=== PATIENT | female | born 1930 | race Caucasian/White ===

== ENCOUNTER 2016-08-09 20:31 | Emergency (ER) | payer OTHER ==
[~2016-08-09] VITALS: Ht 147.3 cm; Wt 63.4 kg
[2016-08-09 21:37] LABS: EOSINOPHIL (%) 1.2 % (0-5); EOSINOPHIL COUNT 0.1 K/uL (0-0.3); HEMATOCRIT 42.6 % (36.0-46.0); IMMATURE GRANULOCYTE (%) 0.6 % (0.0-0.7); INSTRUMENT ABS NEUTROPHIL CT 5.2 K/uL; LYMPHOCYTE COUNT 1.2 K/uL (1.0-2.8); MCH 27.2 PG (29.0-34.0); MCHC 32.4 G/DL (30.0-36.0); MEAN PLAT.VOLUME 10.4 uM^3 (9.5-12.4); MONOCYTE (%) 9.8 % (3-12); MONOCYTE COUNT 0.7 K/uL (0-0.8); NEUTROPHIL (%) 71.8 % (45-76); NEUTROPHIL COUNT 5.2 K/uL (1.8-6.4); PLATELET COUNT 303 K/uL (156-360); RBC DIS.WIDTH-CV 13.3 % (11.8-14.6); RBC DIS.WIDTH-SD 40.9 % (39-53); RED BLOOD COUNT 5.07 M/uL (3.80-5.20); WHITE BLOOD COUNT 7.2 K/uL (4.1-10.2)
[2016-08-09 21:50] LABS: CHLORIDE 103 mEq/L (99-109); POTASSIUM 3.5 mEq/L (3.7-5.4); SODIUM 141 mEq/L (136-147)
[2016-08-09 21:52] LABS: GLUCOSE 194 mg/dL (70-99)
[2016-08-09 21:53] LABS: ANION GAP 13 MEQ/L (2-14)
[2016-08-09 21:54] LABS: TOTAL BILIRUBIN 0.5 mg/dL (0.0-1.0)
[2016-08-09 21:56] LABS: ALKALINE PHOSPHATASE 83 IU/L (3-129); GFR ESTIMATE (CALCULATED) 35 mL/min/
[2016-08-09 21:57] LABS: UREA NITROGEN (BUN) 18 mg/dL (9-23)
[2016-08-09 22:02] LABS: TROP-I INTERPRETATION NEGATIVE; TROPONIN-I 0.02 ng/mL (0.0-0.30)
[2016-08-09 23:35] VITALS: BP 199/69
== END 2016-08-09 23:37 | disposition home or self-care (01) ==
LOC: EME 20:31
PROVIDERS: Emergency Medicine
DX: S00.03XA Contusion of scalp, initial encounter (principal); W18.30XA Fall on same level, unspecified, initial encounter; Y92.512 Supermarket, store or market as the place of occurrence of the external cause; I10 Essential (primary) hypertension; T46.5X6A Underdosing of other antihypertensive drugs, initial encounter; Z91.130 Patient's unintentional underdosing of medication regimen due to age-related debility; M53.3 Sacrococcygeal disorders, not elsewhere classified; M25.551 Pain in right hip; E11.9 Type 2 diabetes mellitus without complications; E78.5 Hyperlipidemia, unspecified
CPT/HCPCS: 70450; 71010; 72220; 73502; 80053; 84484; 85025; 93005; 99281; 99285

== ENCOUNTER 2017-02-04 12:25 | Inpatient (IN) | payer OTHER ==
[~2017-02-04] VITALS: Ht 154.9 cm; Wt 68.6 kg
[2017-02-04 13:18] LABS: ADD MIUA? YES; BILIRUBIN NEGATIVE; BLOOD MODERATE; COLOR YELLOW ((YELLOW)); GLUCOSE (STRIP) >=500; KETONES 20; LEUKOCYTES LARGE; NITRITE NEGATIVE; PROTEIN (STRIP) >=500; SPECIFIC GRAVITY 1.016 (1.000-1.030); UROBILINOGEN 0.2 MG/DL (0.2-1.0)
[2017-02-04 13:21] LABS: EOSINOPHIL (%) 0 % (0-5); HEMATOCRIT 44.5 % (36.0-46.0); IMMATURE GRANULOCYTE (%) 0.5 % (0.0-0.7); IMMATURE GRANULOCYTE COUNT 0.1 K/uL; INSTRUMENT ABS NEUTROPHIL CT 11.8 K/uL; LYMPHOCYTE COUNT 0.7 K/uL (1.0-2.8); MCH 27.5 PG (29.0-34.0); MCHC 31.7 G/DL (30.0-36.0); MCV 86.9 FL (83-99); MEAN PLAT.VOLUME 11.1 uM^3 (9.5-12.4); MONOCYTE (%) 8.4 % (3-12); MONOCYTE COUNT 1.2 K/uL (0-0.8); NEUTROPHIL COUNT 11.8 K/uL (1.8-6.4); PLATELET COUNT 318 K/uL (156-360); RBC DIS.WIDTH-CV 14.2 % (11.8-14.6); RBC DIS.WIDTH-SD 45.1 % (39-53); RED BLOOD COUNT 5.12 M/uL (3.80-5.20); WHITE BLOOD COUNT 13.7 K/uL (4.1-10.2)
[2017-02-04 13:22] LABS: CARBON DIOXIDE (BICARBONATE) 19.7 MEQ/L (20-31)
[2017-02-04 13:29] LABS: PROTHROMBIN TIME 11.5 SEC (10.2-12.9)
[2017-02-04 13:31] LABS: CHLORIDE 111 mEq/L (99-109); POTASSIUM 4.2 mEq/L (3.7-5.4); PTT 30.5 SEC (25-37); SODIUM 153 mEq/L (136-147)
[2017-02-04 13:32] LABS: MAGNESIUM 1.9 mg/dL (1.3-2.7)
[2017-02-04 13:35] LABS: ANION GAP 23 MEQ/L (2-14)
[2017-02-04 13:36] LABS: GLUCOSE 693 mg/dL (70-99); TOTAL BILIRUBIN 0.5 mg/dL (0.0-1.0)
[2017-02-04 13:36] LABS: BACTERIA RARE /HPF; EPITHELIAL CELLS NONE SEEN /HPF; MUCUS NONE SEEN /LPF; RED BLOOD CELLS 15-20 /HPF (0-5); UCUL ADDED? YES; WHITE BLOOD CELLS TNTC /HPF (0-5)
[2017-02-04 13:37] LABS: ALKALINE PHOSPHATASE 96 IU/L (3-129); GFR ESTIMATE (CALCULATED) 16 mL/min/
[2017-02-04 13:39] LABS: UREA NITROGEN (BUN) 79 mg/dL (9-23)
[2017-02-04 13:40] LABS: TOTAL CK 1599 IU/L (1-294)
[2017-02-04 13:42] LABS: CREATINE KINASE 1599 IU/L (1-294)
[2017-02-04 13:43] LABS: TROP-I INTERPRETATION POSITIVE
[2017-02-04 13:44] LABS: TROPONIN-I 3.65 ng/mL (0.0-0.30)
[2017-02-04 13:46] LABS: CK-MB 41.1 ng/mL (0.0-4.9)
[2017-02-04 14:34] LABS: BICARBONATE 16.9 mEq/L (22-26); CARBOXY HGB 2.1 % (0-5); COMMENTS - BLOOD GASES C+A+; FI02 21 %; METHEMOGLOBIN 1.5 % (0-1.5); PCO2 32 mm Hg (35-45); PO2 88 mm Hg (80-100); SITE LB; TOTAL RESP RATE 20 resp/min; pH 7.33 (7.35-7.45)
[2017-02-04 17:23] LABS: EOSINOPHIL (%) 0 % (0-5); HEMATOCRIT 46.3 % (36.0-46.0); IMMATURE GRANULOCYTE (%) 0.4 % (0.0-0.7); IMMATURE GRANULOCYTE COUNT 0.1 K/uL; INSTRUMENT ABS NEUTROPHIL CT 11.7 K/uL; LYMPHOCYTE COUNT 0.9 K/uL (1.0-2.8); MCH 27.8 PG (29.0-34.0); MCHC 31.5 G/DL (30.0-36.0); MCV 88.2 FL (83-99); MEAN PLAT.VOLUME 11.5 uM^3 (9.5-12.4); MONOCYTE (%) 10.9 % (3-12); MONOCYTE COUNT 1.5 K/uL (0-0.8); NEUTROPHIL (%) 82.3 % (45-76); NEUTROPHIL COUNT 11.7 K/uL (1.8-6.4); PLATELET COUNT 281 K/uL (156-360); RBC DIS.WIDTH-CV 14.4 % (11.8-14.6); RBC DIS.WIDTH-SD 45.7 % (39-53); RED BLOOD COUNT 5.25 M/uL (3.80-5.20); WHITE BLOOD COUNT 14.2 K/uL (4.1-10.2)
[2017-02-04 17:50] LABS: METH RESISTANT S AUREUS PCR NEGATIVE (NEGATIVE)
[2017-02-04 17:51] LABS: GLUCOSE 519 mg/dL (70-99)
[2017-02-04 17:56] LABS: PROBE CHECK PASS; SPECIMEN PROCESSING CONTROL PASS
[2017-02-04 18:00] VITALS: BP 111/81
[2017-02-04 18:38] LABS: GLUCOSE 499 mg/dL (70-99)
[2017-02-04 18:51] LABS: Estimated Average Glucose 269 mg/dL (70-123)
[2017-02-04 19:00] VITALS: BP 105/57
[2017-02-04 20:00] VITALS: BP 128/65
[2017-02-04 20:15] LABS: GLUCOSE 487 mg/dL (70-99)
[2017-02-04 20:25] LABS: ANION GAP 18 MEQ/L (2-14); CHLORIDE 115 MEQ/L (99-109); POTASSIUM 4.2 MEQ/L (3.7-5.4); SAMPLE HEMOLYSIS CHECK 0; SAMPLE ICTERIC CHECK 0; SAMPLE LIPEMIA CHECK 0; SODIUM 150 MEQ/L (136-147)
[2017-02-04 20:36] LABS: GFR ESTIMATE (CALCULATED) 28 mL/min/; UREA NITROGEN (BUN) 65 mg/dL (9-23)
[2017-02-04 20:41] LABS: GLUCOSE 476 mg/dL (70-99)
[2017-02-04 21:00] VITALS: BP 110/63
[2017-02-04 21:33] LABS: ANION GAP 31 MEQ/L (2-14); CHLORIDE 113 MEQ/L (99-109); GFR ESTIMATE (CALCULATED) 25 mL/min/; GLUCOSE 519 mg/dL (70-99); MAGNESIUM 1.8 mg/dl (1.3-2.7); POTASSIUM 4.3 MEQ/L (3.7-5.4); SAMPLE HEMOLYSIS CHECK 1; SAMPLE ICTERIC CHECK 0; SAMPLE LIPEMIA CHECK 0; SODIUM 154 MEQ/L (136-147); UREA NITROGEN (BUN) 69 mg/dL (9-23)
[2017-02-04 21:38] LABS: GLUCOSE 455 mg/dL (70-99)
[2017-02-04 22:00] VITALS: BP 109/57
[2017-02-04 22:11] LABS: POINT-OF-CARE METER ID UU13113731; POINT-OF-CARE USER ID PHATLC
[2017-02-04 23:00] VITALS: BP 117/68
[2017-02-04 23:11] LABS: POINT-OF-CARE METER ID UU13113731; POINT-OF-CARE USER ID PHATLC
[2017-02-04 23:15] LABS: GLUCOSE 290 mg/dL (70-99)
[2017-02-05] VITALS (24 sets, daily range): BP systolic 83–143; BP diastolic 46–93
[2017-02-05 00:21] LABS: POINT-OF-CARE METER ID UU13113748; POINT-OF-CARE USER ID 606021424
[2017-02-05 00:33] LABS: SODIUM 154 mEq/L (136-147)
[2017-02-05 00:34] LABS: CHLORIDE 124 mEq/L (99-109); POTASSIUM 2.9 mEq/L (3.7-5.4)
[2017-02-05 00:36] LABS: ANION GAP 11 MEQ/L (2-14)
[2017-02-05 00:39] LABS: GFR ESTIMATE (CALCULATED) 25 mL/min/; UREA NITROGEN (BUN) 65 mg/dL (9-23)
[2017-02-05 00:47] LABS: TROP-I INTERPRETATION POSITIVE
[2017-02-05 00:53] LABS: TROPONIN-I 3.21 ng/mL (0.0-0.30)
[2017-02-05 01:04] LABS: POINT-OF-CARE METER ID UU13113731; POINT-OF-CARE USER ID PHATLC
[2017-02-05 01:59] LABS: POINT-OF-CARE METER ID UU14314082; POINT-OF-CARE USER ID PHATLC
[2017-02-05 02:43] LABS: POINT-OF-CARE METER ID UU14314082; POINT-OF-CARE USER ID 606021424
[2017-02-05 03:35] LABS: POINT-OF-CARE METER ID UU14314082; POINT-OF-CARE USER ID PHATLC
[2017-02-05 04:02] LABS: CHLORIDE 123 mEq/L (99-109); POTASSIUM 3.1 mEq/L (3.7-5.4); SODIUM 157 mEq/L (136-147)
[2017-02-05 04:05] LABS: ANION GAP 14 MEQ/L (2-14)
[2017-02-05 04:06] LABS: GLUCOSE 105 mg/dL (70-99)
[2017-02-05 04:07] LABS: GFR ESTIMATE (CALCULATED) 27 mL/min/
[2017-02-05 04:08] LABS: UREA NITROGEN (BUN) 60 mg/dL (9-23)
[2017-02-05 04:39] LABS: POINT-OF-CARE METER ID UU14314082; POINT-OF-CARE USER ID PHATLC
[2017-02-05 04:55] LABS: TROP-I INTERPRETATION POSITIVE
[2017-02-05 04:57] LABS: TROPONIN-I 4.46 ng/mL (0.0-0.30)
[2017-02-05 05:54] LABS: POINT-OF-CARE METER ID UU14314082; POINT-OF-CARE USER ID PHATLC
[2017-02-05 06:43] LABS: POINT-OF-CARE METER ID UU14174217
[2017-02-05 07:48] LABS: POINT-OF-CARE METER ID UU14314082
[2017-02-05 08:52] LABS: POINT-OF-CARE METER ID UU14314082
[2017-02-05 09:24] LABS: ANION GAP 16 MEQ/L (2-14); CHLORIDE 122 MEQ/L (99-109); CREATINE KINASE 870 IU/L (1-294); GFR ESTIMATE (CALCULATED) 27 mL/min/; POTASSIUM 3.5 MEQ/L (3.7-5.4); SAMPLE HEMOLYSIS CHECK 0; SAMPLE ICTERIC CHECK 0; SAMPLE LIPEMIA CHECK 0; SODIUM 156 MEQ/L (136-147); UREA NITROGEN (BUN) 56 mg/dL (9-23)
[2017-02-05 09:26] LABS: GLUCOSE 202 mg/dL (70-99)
[2017-02-05 10:00] LABS: POINT-OF-CARE METER ID UU14174217
[2017-02-05 11:02] LABS: POINT-OF-CARE METER ID UU14174217
[2017-02-05 12:10] LABS: POINT-OF-CARE METER ID UU14208751
[2017-02-05 13:13] LABS: POINT-OF-CARE METER ID UU14208751
[2017-02-05 13:19] LABS: TROP-I INTERPRETATION POSITIVE; TROPONIN-I 2.85 ng/mL (0.0-0.30)
[2017-02-05 13:29] LABS: PTT 93.4 SEC (25-37)
[2017-02-05 13:30] LABS: ANION GAP 12 MEQ/L (2-14); CHLORIDE 122 MEQ/L (99-109); GFR ESTIMATE (CALCULATED) 32 mL/min/; GLUCOSE 138 mg/dL (70-99); POTASSIUM 3.4 MEQ/L (3.7-5.4); SAMPLE HEMOLYSIS CHECK 0; SAMPLE ICTERIC CHECK 0; SAMPLE LIPEMIA CHECK 0; SODIUM 154 MEQ/L (136-147); UREA NITROGEN (BUN) 51 mg/dL (9-23); VANCOMYCIN, TROUGH 11.9 MCG/ML (10-20)
[2017-02-05 13:40] LABS: POINT-OF-CARE METER ID UU14208751
[2017-02-05 15:04] LABS: POINT-OF-CARE METER ID UU14208751
[2017-02-05 16:50] LABS: POINT-OF-CARE METER ID UU14208751
[2017-02-05 21:01] LABS: TROP-I INTERPRETATION POSITIVE; TROPONIN-I 2.96 ng/mL (0.0-0.30)
[2017-02-05 23:34] LABS: POINT-OF-CARE METER ID UU14208751
[2017-02-06] VITALS (12 sets, daily range): BP systolic 119–154; BP diastolic 52–104
[2017-02-06 03:45] LABS: CHLORIDE 122 mEq/L (99-109); POTASSIUM 3.1 mEq/L (3.7-5.4); SODIUM 153 mEq/L (136-147)
[2017-02-06 03:47] LABS: MAGNESIUM 1.1 mg/dL (1.3-2.7)
[2017-02-06 03:48] LABS: GLUCOSE 99 mg/dL (70-99)
[2017-02-06 03:49] LABS: ANION GAP 11 MEQ/L (2-14)
[2017-02-06 03:51] LABS: GFR ESTIMATE (CALCULATED) 32 mL/min/
[2017-02-06 03:52] LABS: UREA NITROGEN (BUN) 45 mg/dL (9-23)
[2017-02-06 04:37] LABS: EOSINOPHIL (%) 1.9 % (0-5); EOSINOPHIL COUNT 0.1 K/uL (0-0.3); HEMATOCRIT 31.8 % (36.0-46.0); IMMATURE GRANULOCYTE (%) 0.6 % (0.0-0.7); INSTRUMENT ABS NEUTROPHIL CT 5.3 K/uL; LYMPHOCYTE COUNT 1.2 K/uL (1.0-2.8); MCH 27.5 PG (29.0-34.0); MCHC 31.4 G/DL (30.0-36.0); MCV 87.4 FL (83-99); MONOCYTE (%) 7.3 % (3-12); MONOCYTE COUNT 0.5 K/uL (0-0.8); NEUTROPHIL (%) 72.9 % (45-76); NEUTROPHIL COUNT 5.3 K/uL (1.8-6.4); RBC DIS.WIDTH-CV 14.4 % (11.8-14.6); RBC DIS.WIDTH-SD 46.3 % (39-53); WHITE BLOOD COUNT 7.2 K/uL (4.1-10.2)
[2017-02-06 04:38] LABS: RED BLOOD COUNT 3.64 M/uL (3.80-5.20)
[2017-02-06 07:24] LABS: MEAN PLAT.VOLUME 11.5 uM^3 (9.5-12.4); PLAT.SUFFICIENCY ADEQUATE
[2017-02-06 07:25] LABS: PLATELET COUNT 194 K/uL (156-360)
[2017-02-06 12:13] LABS: POINT-OF-CARE METER ID UU13113748
[2017-02-06 17:21] LABS: POINT-OF-CARE METER ID UU14162508
[2017-02-06 20:16] LABS: ANION GAP 15 MEQ/L (2-14); CHLORIDE 118 MEQ/L (99-109); GFR ESTIMATE (CALCULATED) 30 mL/min/; SAMPLE HEMOLYSIS CHECK 0; SAMPLE ICTERIC CHECK 0; SAMPLE LIPEMIA CHECK 0; SODIUM 149 MEQ/L (136-147); UREA NITROGEN (BUN) 40 mg/dL (9-23)
[2017-02-06 20:19] LABS: POINT-OF-CARE METER ID UU14100415
[2017-02-06 20:19] LABS: POINT-OF-CARE METER ID UU13113748
[2017-02-06 20:20] LABS: GLUCOSE 153 mg/dL (70-99); POTASSIUM 4.2 MEQ/L (3.7-5.4)
[2017-02-06 20:32] LABS: POINT-OF-CARE METER ID UU13113731; POINT-OF-CARE USER ID PHATLC
[2017-02-06 20:32] LABS: POINT-OF-CARE METER ID UU13113731; POINT-OF-CARE USER ID PHATLC
[2017-02-07] VITALS: BP 138/62
[2017-02-07 00:01] LABS: POINT-OF-CARE METER ID UU14208750
[2017-02-07 04:02] VITALS: BP 134/61
[2017-02-07 05:37] LABS: POINT-OF-CARE METER ID UU14208750
[2017-02-07 07:10] LABS: EOSINOPHIL COUNT 0.1 K/uL (0-0.3); HEMATOCRIT 32.4 % (36.0-46.0); IMMATURE GRANULOCYTE (%) 0.9 % (0.0-0.7); IMMATURE GRANULOCYTE COUNT 0.1 K/uL; INSTRUMENT ABS NEUTROPHIL CT 4.8 K/uL; MCH 28.5 PG (29.0-34.0); MCHC 32.1 G/DL (30.0-36.0); MCV 88.8 FL (83-99); MEAN PLAT.VOLUME 11.2 uM^3 (9.5-12.4); MONOCYTE (%) 8.1 % (3-12); MONOCYTE COUNT 0.5 K/uL (0-0.8); NEUTROPHIL (%) 73.8 % (45-76); NEUTROPHIL COUNT 4.8 K/uL (1.8-6.4); PLATELET COUNT 169 K/uL (156-360); RBC DIS.WIDTH-CV 14.6 % (11.8-14.6); RBC DIS.WIDTH-SD 47.2 % (39-53); RED BLOOD COUNT 3.65 M/uL (3.80-5.20); WHITE BLOOD COUNT 6.5 K/uL (4.1-10.2)
[2017-02-07 07:20] VITALS: BP 120/57
[2017-02-07 07:38] LABS: ANION GAP 15 MEQ/L (2-14); CHLORIDE 118 MEQ/L (99-109); GFR ESTIMATE (CALCULATED) 30 mL/min/; GLUCOSE 173 mg/dL (70-99); POTASSIUM 4.2 MEQ/L (3.7-5.4); SAMPLE HEMOLYSIS CHECK 0; SAMPLE ICTERIC CHECK 0; SAMPLE LIPEMIA CHECK 0; SODIUM 151 MEQ/L (136-147); UREA NITROGEN (BUN) 40 mg/dL (9-23)
[2017-02-07 11:35] LABS: POINT-OF-CARE METER ID UU14314084
[2017-02-07] MEDS ORDERED: LISINOPRIL40 MG PO (12:28)
[2017-02-07] MEDS ORDERED: NORVASC5 MG PO (12:28)
[2017-02-07] MEDS ORDERED: PRAVACHOL40 MG PO (12:28)
[2017-02-07] MEDS ORDERED: MELOXICAM7.5 MG PO (12:29)
[2017-02-07] MEDS ORDERED: MUPIROCIN15 GM TP (12:29)
[2017-02-07] MEDS ORDERED: TRADJENTA5 MG PO (12:30)
[2017-02-07 13:06] VITALS: BP 190/70
[2017-02-07 15:47] VITALS: BP 110/58
[2017-02-07 16:32] LABS: POINT-OF-CARE METER ID UU14314084
[2017-02-07 20:15] VITALS: BP 183/78
[2017-02-07 20:50] LABS: ANION GAP 12 MEQ/L (2-14); CHLORIDE 113 MEQ/L (99-109); GFR ESTIMATE (CALCULATED) 35 mL/min/; SAMPLE HEMOLYSIS CHECK 0; SAMPLE ICTERIC CHECK 0; SAMPLE LIPEMIA CHECK 0; SODIUM 145 MEQ/L (136-147); UREA NITROGEN (BUN) 35 mg/dL (9-23)
[2017-02-07 21:47] LABS: GLUCOSE 260 mg/dL (70-99)
[2017-02-07 22:05] LABS: POINT-OF-CARE METER ID UU14208750
[2017-02-08] VITALS (7 sets, daily range): BP systolic 145–188; BP diastolic 68–89
[2017-02-08 06:20] LABS: POINT-OF-CARE METER ID UU14314084
[2017-02-08 08:41] LABS: ANION GAP 9 MEQ/L (2-14); CHLORIDE 112 MEQ/L (99-109); GFR ESTIMATE (CALCULATED) 41 mL/min/; GLUCOSE 139 mg/dL (70-99); POTASSIUM 3.3 MEQ/L (3.7-5.4); SAMPLE HEMOLYSIS CHECK 0; SAMPLE ICTERIC CHECK 0; SAMPLE LIPEMIA CHECK 0; SODIUM 144 MEQ/L (136-147); UREA NITROGEN (BUN) 28 mg/dL (9-23)
[2017-02-08 12:30] LABS: POINT-OF-CARE METER ID UU14314084
[2017-02-08 16:58] LABS: POINT-OF-CARE METER ID UU14314084
[2017-02-08 20:48] LABS: ANION GAP 11 MEQ/L (2-14); CHLORIDE 107 MEQ/L (99-109); GFR ESTIMATE (CALCULATED) 45 mL/min/; GLUCOSE 235 mg/dL (70-99); POTASSIUM 3.4 MEQ/L (3.7-5.4); SAMPLE HEMOLYSIS CHECK 0; SAMPLE ICTERIC CHECK 0; SAMPLE LIPEMIA CHECK 0; SODIUM 141 MEQ/L (136-147); UREA NITROGEN (BUN) 24 mg/dL (9-23)
[2017-02-08 21:46] LABS: POINT-OF-CARE METER ID UU14314084
[2017-02-09 03:44] VITALS: BP 155/82
[2017-02-09 06:43] LABS: HEMATOCRIT 33.2 % (36.0-46.0); MCH 26.9 PG (29.0-34.0); MCHC 31.3 G/DL (30.0-36.0); MCV 85.8 FL (83-99); MEAN PLAT.VOLUME 11.5 uM^3 (9.5-12.4); PLATELET COUNT 181 K/uL (156-360); RBC DIS.WIDTH-CV 13.7 % (11.8-14.6); RBC DIS.WIDTH-SD 42.5 % (39-53); RED BLOOD COUNT 3.87 M/uL (3.80-5.20); WHITE BLOOD COUNT 5.5 K/uL (4.1-10.2)
[2017-02-09 07:07] LABS: ANION GAP 10 MEQ/L (2-14); CHLORIDE 111 MEQ/L (99-109); GFR ESTIMATE (CALCULATED) 45 mL/min/; POTASSIUM 3.4 MEQ/L (3.7-5.4); SAMPLE HEMOLYSIS CHECK 0; SAMPLE ICTERIC CHECK 0; SAMPLE LIPEMIA CHECK 0; SODIUM 143 MEQ/L (136-147); UREA NITROGEN (BUN) 21 mg/dL (9-23)
[2017-02-09 07:09] LABS: GLUCOSE 100 mg/dL (70-99)
[2017-02-09 07:20] VITALS: BP 156/81
[2017-02-09 12:03] LABS: POINT-OF-CARE METER ID UU14208750
[2017-02-09] MEDS ORDERED: CEPHALEXIN250 MG PO (12:23)
[2017-02-09] MEDS ORDERED: LISINOPRIL20 MG PO (12:28)
[2017-02-09] MEDS ORDERED: ASPIRIN EC325 MG PO (12:32)
[2017-02-09] MEDS ORDERED: LEVEMIR100 UNIT/2 SC (12:33)
[2017-02-09 15:50] VITALS: BP 129/56
[2017-02-09 16:12] LABS: POINT-OF-CARE METER ID UU14314084
[2017-02-09 20:21] LABS: SODIUM 138 mEq/L (136-147)
[2017-02-09 20:24] LABS: ANION GAP 9 MEQ/L (2-14)
[2017-02-09 20:27] LABS: GFR ESTIMATE (CALCULATED) 35 mL/min/
[2017-02-09 20:28] LABS: CHLORIDE 109 mEq/L (99-109); GLUCOSE 227 mg/dL (70-99); POTASSIUM 4.2 mEq/L (3.7-5.4); UREA NITROGEN (BUN) 19 mg/dL (9-23)
[2017-02-09 22:19] LABS: POINT-OF-CARE METER ID UU14208750
[2017-02-09 23:00] VITALS: BP 183/84
[2017-02-10 06:46] LABS: POINT-OF-CARE METER ID UU14314084
[2017-02-10 07:52] VITALS: BP 169/70
[2017-02-10 11:53] LABS: POINT-OF-CARE METER ID UU14208750
[2017-02-10 17:02] LABS: POINT-OF-CARE METER ID UU14314084
[2017-02-10 18:20] VITALS: BP 166/74
== END 2017-02-10 18:22 | DRG 871 ==
LOC: EME 12:25 → EDOF 14:41 → 2EAST 14:41 → ENRESERV 14:42 → 4WEST 15:57 → ENRESERV 02-06 11:11 → 2EAST 02-06 16:48
PROVIDERS: Emergency Medicine; Hospitalist; Internal Medicine; Specialist; Surgery
DX: A41.9 Sepsis, unspecified organism (principal); N17.9 Acute kidney failure, unspecified; E11.10 Type 2 diabetes mellitus with ketoacidosis without coma; N39.0 Urinary tract infection, site not specified; E87.0 Hyperosmolality and hypernatremia; M62.82 Rhabdomyolysis; I10 Essential (primary) hypertension; E86.0 Dehydration; R68.0 Hypothermia, not associated with low environmental temperature; B96.4 Proteus (mirabilis) (morganii) as the cause of diseases classified elsewhere; Z66 Do not resuscitate; I24.8 Other forms of acute ischemic heart disease; G93.41 Metabolic encephalopathy; E78.5 Hyperlipidemia, unspecified; E86.1 Hypovolemia; I44.7 Left bundle-branch block, unspecified; Z91.81 History of falling
CPT/HCPCS: 36600; 70450; 71010; 80048; 80048 91; 80053; 80202; 81003; 82010; 82550; 82553; 82803; 82947 91; 82948; 83036; 83605; 83735; 84100; 84484; 85025; 85025 91; 85027; 85610; 85730; 87040; 87077; 87086; 87186; 87641; 93005; 93306; 97530 GP; 99281; 99285; C1751; J0610; J0696; J1644; J1815; J2270; J2543; J3370; J3475; J3480; J7030; J7040; J7050; J7120

== ENCOUNTER 2017-04-20 23:09 | Inpatient (IN) | payer OTHER ==
[~2017-04-20] VITALS: Ht 139.7 cm; Wt 62.0 kg
[~2017-04-20 23:09] MED LIST: ASPIRIN EC325 MG PO; CEPHALEXIN250 MG PO; LEVEMIR100 UNIT/2 SC; LISINOPRIL20 MG PO; LISINOPRIL40 MG PO; MELOXICAM7.5 MG PO; MUPIROCIN15 GM TP; NORVASC5 MG PO; PRAVACHOL40 MG PO; TRADJENTA5 MG PO
[2017-04-21 00:20] LABS: BASOPHIL (%) 0.4 % (0-1); EOSINOPHIL (%) 0.6 % (0-5); HEMATOCRIT 36.3 % (36.0-46.0); IMMATURE GRANULOCYTE (%) 0.6 % (0.0-0.7); LYMPHOCYTE (%) 17.7 % (15-42); MCH 27.3 PG (29.0-34.0); MCHC 33.1 G/DL (30.0-36.0); MCV 82.5 FL (83-99); MONOCYTE (%) 16.8 % (3-12); MONOCYTE COUNT 0.9 K/uL (0-0.8); NEUTROPHIL (%) 63.9 % (45-76); NEUTROPHIL COUNT 3.5 K/uL (1.8-6.4); PLATELET COUNT 393 K/uL (156-360); RBC DIS.WIDTH-CV 15.7 % (11.8-14.6); RBC DIS.WIDTH-SD 47.5 % (39-53); WHITE BLOOD COUNT 5.4 K/uL (4.1-10.2)
[2017-04-21 00:31] LABS: ALBUMIN 3.7 g/dL (3.2-4.8); CHLORIDE 90 mEq/L (99-109); POTASSIUM 3.9 mEq/L (3.7-5.4); SODIUM 132 mEq/L (136-147)
[2017-04-21 00:33] LABS: APPEARANCE CLOUDY ((CLEAR)); BILIRUBIN NEGATIVE; BLOOD NEGATIVE; COLOR AMBER ((YELLOW)); GLUCOSE (STRIP) NEGATIVE; KETONES NEGATIVE; LEUKOCYTES LARGE; NITRITE NEGATIVE; PROTEIN (STRIP) 30; SPECIFIC GRAVITY 1.021 (1.000-1.030); UROBILINOGEN 0.2 MG/DL (0.2-1.0)
[2017-04-21 00:33] LABS: GLUCOSE 198 mg/dL (70-99); TOTAL PROTEIN 6.6 g/dL (6.4-8.3)
[2017-04-21 00:35] LABS: TOTAL BILIRUBIN 0.5 mg/dL (0.0-1.0)
[2017-04-21 00:37] LABS: ALKALINE PHOSPHATASE 89 IU/L (3-129); CREATININE 2.3 mg/dL (0.6-1.3); GFR ESTIMATE (CALCULATED) 21 mL/min/
[2017-04-21 00:38] LABS: UREA NITROGEN (BUN) 42 mg/dL (9-23)
[2017-04-21 00:39] LABS: AST (GOT) 12 IU/L (2-34)
[2017-04-21 00:40] LABS: ALT (GPT) 7 IU/L (3-49); LIPASE 56 U/L (1.0-51.0)
[2017-04-21 00:53] LABS: BACTERIA 1+ /HPF; EPITHELIAL CELLS 3+ /HPF; HYALINE CASTS 15-20 /LPF; MUCUS TRACE /LPF; UCUL ADDED? YES; WHITE BLOOD CELLS 20-30 /HPF (0-5)
[2017-04-21 09:00] VITALS: BP 114/56
[2017-04-21 10:17] LABS: HEMOGLOBIN A1c (GLYCOHEMOGLOB) 7.4 % (Below 5.7)
[2017-04-21] MEDS ORDERED: MIRTAZAPINE15 MG PO (11:25)
[2017-04-21] MEDS ORDERED: ERGOCALCIF50000 UNIT PO (11:28)
[2017-04-21] MEDS ORDERED: CEFTIN250 MG PO (11:30)
[2017-04-21] MEDS ORDERED: METOPROLOL TART25 MG PO (11:33)
[2017-04-21] MEDS ORDERED: OMEGA-3 KRILL1 EAC2 PO (11:37)
[2017-04-21] MEDS ORDERED: GAS RELIEF125 M1 PO (11:43)
[2017-04-21] MEDS ORDERED: TYLENOL REGULA325 MG PO (11:45)
[2017-04-21] MEDS ORDERED: ZOFRAN4 MG PO (11:48)
[2017-04-21 12:00] VITALS: BP 118/65
[2017-04-21 15:39] VITALS: BP 123/57
[2017-04-21 20:00] VITALS: BP 106/59; BP 143/65
[2017-04-22 04:00] VITALS: BP 120/56
[2017-04-22 05:51] LABS: HEMOGLOBIN 10.2 G/DL (11.9-15.5); MCH 27.3 PG (29.0-34.0); MCHC 31.9 G/DL (30.0-36.0); MCV 85.6 FL (83-99); PLATELET COUNT 307 K/uL (156-360); RBC DIS.WIDTH-CV 15.8 % (11.8-14.6); RBC DIS.WIDTH-SD 49.7 % (39-53); RED BLOOD COUNT 3.74 M/uL (3.80-5.20); WHITE BLOOD COUNT 8.7 K/uL (4.1-10.2)
[2017-04-22 06:18] LABS: CHLORIDE 101 MEQ/L (99-109); GFR ESTIMATE (CALCULATED) 30 mL/min/; GLUCOSE 196 mg/dL (70-99); POTASSIUM 3.5 MEQ/L (3.7-5.4); SODIUM 136 MEQ/L (136-147); UREA NITROGEN (BUN) 33 mg/dL (9-23)
[2017-04-22 06:23] LABS: CREATININE 1.7 MG/DL (0.6-1.3)
[2017-04-22 07:25] VITALS: BP 151/62
[2017-04-22 12:09] VITALS: BP 139/63
[2017-04-22 15:39] VITALS: BP 128/60
[2017-04-22 19:40] VITALS: BP 169/78
[2017-04-22 23:18] VITALS: BP 140/65
[2017-04-23 05:03] LABS: HEMATOCRIT 27.8 % (36.0-46.0); MCH 27.6 PG (29.0-34.0); MCHC 32.4 G/DL (30.0-36.0); MCV 85.3 FL (83-99); PLATELET COUNT 262 K/uL (156-360); RBC DIS.WIDTH-SD 50.5 % (39-53); RED BLOOD COUNT 3.26 M/uL (3.80-5.20); WHITE BLOOD COUNT 6.9 K/uL (4.1-10.2)
[2017-04-23 05:16] LABS: POTASSIUM 3.8 mEq/L (3.7-5.4)
[2017-04-23 05:22] LABS: CREATININE 1.3 mg/dL (0.6-1.3); GFR ESTIMATE (CALCULATED) 41 mL/min/
[2017-04-23 05:23] LABS: UREA NITROGEN (BUN) 24 mg/dL (9-23)
[2017-04-23 05:30] VITALS: BP 129/60
[2017-04-23 05:33] LABS: CHLORIDE 113 mEq/L (99-109); GLUCOSE 89 mg/dL (70-99); SODIUM 143 mEq/L (136-147)
[2017-04-23 08:34] VITALS: BP 150/60
[2017-04-23 11:10] VITALS: BP 138/99
[2017-04-23 15:51] VITALS: BP 161/58
[2017-04-23 19:43] VITALS: BP 162/67
[2017-04-24 00:28] VITALS: BP 139/63
[2017-04-24 02:40] VITALS: BP 145/85
[2017-04-24 05:39] LABS: HEMATOCRIT 31.4 % (36.0-46.0); HEMOGLOBIN 9.7 G/DL (11.9-15.5); MCH 27.2 PG (29.0-34.0); MCHC 30.9 G/DL (30.0-36.0); PLATELET COUNT 317 K/uL (156-360); RBC DIS.WIDTH-CV 16.3 % (11.8-14.6); RBC DIS.WIDTH-SD 52.5 % (39-53); RED BLOOD COUNT 3.57 M/uL (3.80-5.20); WHITE BLOOD COUNT 8.6 K/uL (4.1-10.2)
[2017-04-24 06:33] LABS: CHLORIDE 109 MEQ/L (99-109); CREATININE 1.3 MG/DL (0.6-1.3); GFR ESTIMATE (CALCULATED) 41 mL/min/; GLUCOSE 82 mg/dL (70-99); MAGNESIUM 2.2 mg/dl (1.3-2.7); POTASSIUM 3.9 MEQ/L (3.7-5.4); SODIUM 148 MEQ/L (136-147); UREA NITROGEN (BUN) 21 mg/dL (9-23)
[2017-04-24 08:33] VITALS: BP 144/65
[2017-04-24 11:53] VITALS: BP 148/67
[2017-04-24 16:41] VITALS: BP 152/67
[2017-04-24 21:02] VITALS: BP 140/60
[2017-04-25] VITALS (7 sets, daily range): BP systolic 134–179; BP diastolic 58–74
[2017-04-25 05:35] LABS: HEMATOCRIT 32.2 % (36.0-46.0); HEMOGLOBIN 9.9 G/DL (11.9-15.5); MCH 27.1 PG (29.0-34.0); MCHC 30.7 G/DL (30.0-36.0); MCV 88.2 FL (83-99); PLATELET COUNT 380 K/uL (156-360); RBC DIS.WIDTH-CV 16.3 % (11.8-14.6); RED BLOOD COUNT 3.65 M/uL (3.80-5.20); WHITE BLOOD COUNT 7.3 K/uL (4.1-10.2)
[2017-04-25 06:31] LABS: CHLORIDE 107 MEQ/L (99-109); CREATININE 1.2 MG/DL (0.6-1.3); GFR ESTIMATE (CALCULATED) 45 mL/min/; POTASSIUM 3.3 MEQ/L (3.7-5.4); SODIUM 146 MEQ/L (136-147); UREA NITROGEN (BUN) 18 mg/dL (9-23)
[2017-04-25 06:32] LABS: GLUCOSE 129 mg/dL (70-99); MAGNESIUM 1.6 mg/dl (1.3-2.7)
[2017-04-25 13:28] LABS: BASE EXCESS -4.8 mEq/L (-3 to +3); BICARBONATE 19.2 mEq/L (22-26); COMMENTS - BLOOD GASES NAC+; DEVICE NC; METHEMOGLOBIN 1.6 % (0-1.5); O2 FLOW 2 L/MIN; PCO2 31 mm Hg (35-45); PO2 82 mm Hg (80-100); SITE RB; TOTAL RESP RATE 14 resp/min
[2017-04-26 03:15] VITALS: BP 170/80
[2017-04-26 06:10] LABS: CHLORIDE 106 MEQ/L (99-109); CREATININE 1.2 MG/DL (0.6-1.3); GFR ESTIMATE (CALCULATED) 45 mL/min/; GLUCOSE 159 mg/dL (70-99); POTASSIUM 3.6 MEQ/L (3.7-5.4); SODIUM 142 MEQ/L (136-147); UREA NITROGEN (BUN) 16 mg/dL (9-23)
[2017-04-26 06:17] LABS: MAGNESIUM 2.1 mg/dl (1.3-2.7)
[2017-04-26 11:11] VITALS: BP 154/70
[2017-04-26 15:45] LABS: C DIFF TOXIN POSITIVE (NEGATIVE)
[2017-04-26 16:37] VITALS: BP 142/66
[2017-04-26 20:53] VITALS: BP 175/72
[2017-04-26 23:39] VITALS: BP 167/77
[2017-04-27 04:52] VITALS: BP 169/81
[2017-04-27 09:57] LABS: HEMATOCRIT 29.9 % (36.0-46.0); HEMOGLOBIN 9.5 G/DL (11.9-15.5); MCH 26.5 PG (29.0-34.0); MCHC 31.8 G/DL (30.0-36.0); MCV 83.5 FL (83-99); PLATELET COUNT 310 K/uL (156-360); RBC DIS.WIDTH-CV 15.8 % (11.8-14.6); RBC DIS.WIDTH-SD 48.5 % (39-53); RED BLOOD COUNT 3.58 M/uL (3.80-5.20); WHITE BLOOD COUNT 7.6 K/uL (4.1-10.2)
[2017-04-27 10:31] LABS: CHLORIDE 103 MEQ/L (99-109); CREATININE 0.9 MG/DL (0.6-1.3); GFR ESTIMATE (CALCULATED) > 59 mL/min/; GLUCOSE 191 mg/dL (70-99); POTASSIUM 3.3 MEQ/L (3.7-5.4); SODIUM 139 MEQ/L (136-147); UREA NITROGEN (BUN) 10 mg/dL (9-23)
[2017-04-27 15:37] VITALS: BP 186/74
[2017-04-27 20:08] VITALS: BP 176/72
[2017-04-27 23:12] VITALS: BP 180/74
[2017-04-28 03:38] VITALS: BP 155/68
[2017-04-28 06:27] LABS: CHLORIDE 104 MEQ/L (99-109); GFR ESTIMATE (CALCULATED) 56 mL/min/; POTASSIUM 3.1 MEQ/L (3.7-5.4); SODIUM 141 MEQ/L (136-147); UREA NITROGEN (BUN) 8 mg/dL (9-23)
[2017-04-28 06:31] LABS: GLUCOSE 110 mg/dL (70-99); MAGNESIUM 1.1 mg/dl (1.3-2.7)
[2017-04-28 07:15] VITALS: BP 134/57
[2017-04-28 15:59] VITALS: BP 136/62
[2017-04-28 16:39] LABS: CHLORIDE 103 MEQ/L (99-109); POTASSIUM 3.3 MEQ/L (3.7-5.4); SODIUM 140 MEQ/L (136-147)
[2017-04-28 16:44] LABS: GFR ESTIMATE (CALCULATED) 56 mL/min/; GLUCOSE 155 mg/dL (70-99); UREA NITROGEN (BUN) 8 mg/dL (9-23)
[2017-04-29 05:55] LABS: CHLORIDE 104 MEQ/L (99-109); CREATININE 0.9 MG/DL (0.6-1.3); GFR ESTIMATE (CALCULATED) > 59 mL/min/; GLUCOSE 126 mg/dL (70-99); MAGNESIUM 1.1 mg/dl (1.3-2.7); POTASSIUM 3.3 MEQ/L (3.7-5.4); SODIUM 141 MEQ/L (136-147); UREA NITROGEN (BUN) 7 mg/dL (9-23)
[2017-04-29 08:09] VITALS: BP 133/69
[2017-04-29 16:06] VITALS: BP 138/68
[2017-04-29 23:57] VITALS: BP 145/61
[2017-04-30 07:12] LABS: CHLORIDE 105 MEQ/L (99-109); CREATININE 1.2 MG/DL (0.6-1.3); GFR ESTIMATE (CALCULATED) 45 mL/min/; GLUCOSE 129 mg/dL (70-99); POTASSIUM 3.7 MEQ/L (3.7-5.4); SODIUM 142 MEQ/L (136-147); UREA NITROGEN (BUN) 10 mg/dL (9-23)
[2017-04-30 07:21] LABS: MAGNESIUM 1.8 mg/dl (1.3-2.7)
[2017-04-30 08:39] VITALS: BP 128/74
[2017-04-30 16:30] VITALS: BP 122/70
[2017-05-01 00:37] VITALS: BP 180/74
[2017-05-01 08:30] VITALS: BP 134/72
[2017-05-01 15:00] VITALS: BP 138/70
[2017-05-02 06:20] LABS: CHLORIDE 104 MEQ/L (99-109); CREATININE 1.2 MG/DL (0.6-1.3); GFR ESTIMATE (CALCULATED) 45 mL/min/; GLUCOSE 124 mg/dL (70-99); POTASSIUM 3.3 MEQ/L (3.7-5.4); SODIUM 141 MEQ/L (136-147); UREA NITROGEN (BUN) 10 mg/dL (9-23)
[2017-05-02 06:23] LABS: MAGNESIUM 1.4 mg/dl (1.3-2.7)
[2017-05-02 08:29] VITALS: BP 140/72
[2017-05-02] MEDS ORDERED: VANCOCIN HCL125 MG PO ×2 (10:25→11:05)
[2017-05-02] MEDS ORDERED: TRAZODONE HCL50 MG PO ×2 (11:08→11:09)
[2017-05-02] MEDS ORDERED: AMLODIPINE BESYL5 MG PO (11:08)
[2017-05-02 17:06] VITALS: BP 136/75
[2017-05-02 23:21] VITALS: BP 160/74
[2017-05-03 08:28] VITALS: BP 178/72
[2017-05-03 11:15] VITALS: BP 137/63
[2017-05-03 11:29] VITALS: BP 137/63
[2017-05-03 11:31] VITALS: BP 137/63
== END 2017-05-03 11:48 | DRG 350 ==
LOC: EME → EDBD 23:09 → EME 23:09 → SDC 04-21 03:39 → EME 04-21 03:39 → 2SOUTH 04-21 05:02 → ENRESERV 04-21 05:28 → 2SOUTH 04-21 06:55 → 4EAST 04-21 06:55 → 2SOUTH 04-21 06:55 → ENRESERV 04-21 07:10 → 4EAST 04-21 07:36 → ENRESERV 04-27 08:50 → 3EAST 04-27 15:19
PROVIDERS: Emergency Medicine; Internal Medicine; Physician Assistant; Surgery
PROC: 0YQ70ZZ Repair Right Femoral Region, Open Approach (ICD-10-PCS; principal; 2017-04-21)
PROC: 0JB90ZZ Excision of Buttock Subcutaneous Tissue and Fascia, Open Approach (ICD-10-PCS; 2017-05-02)
DX: K41.30 Unilateral femoral hernia, with obstruction, without gangrene, not specified as recurrent (principal); N17.9 Acute kidney failure, unspecified; G93.41 Metabolic encephalopathy; K56.7 Ileus, unspecified; L02.31 Cutaneous abscess of buttock; R65.10 Systemic inflammatory response syndrome (SIRS) of non-infectious origin without acute organ dysfunction; E11.22 Type 2 diabetes mellitus with diabetic chronic kidney disease; A04.72 Enterocolitis due to Clostridium difficile, not specified as recurrent; E83.42 Hypomagnesemia; E87.6 Hypokalemia; R09.02 Hypoxemia; I12.9 Hypertensive chronic kidney disease with stage 1 through stage 4 chronic kidney disease, or unspecified chronic kidney disease; N18.3 Chronic kidney disease, stage 3 (moderate); E78.5 Hyperlipidemia, unspecified; R82.71 Bacteriuria; F01.50 Vascular dementia, unspecified severity, without behavioral disturbance, psychotic disturbance, mood disturbance, and anxiety; I35.0 Nonrheumatic aortic (valve) stenosis; I44.7 Left bundle-branch block, unspecified; R32 Unspecified urinary incontinence; I25.2 Old myocardial infarction; Z79.4 Long term (current) use of insulin; Z79.84 Long term (current) use of oral hypoglycemic drugs
CPT/HCPCS: 36600; 71045; 71046; 74018; 74019; 74176; 80048; 80048 91; 80053; 81003; 82803; 82948; 83036; 83605; 83690; 83735; 83880; 84100; 85025; 85027; 87040; 87077; 87086; 87186; 87493; 88302; 92526 GN; 92610 GN; 93005; 94799; 97530 GP; 99281; 99285; J0131; J0360; J0610; J0696; J1170; J1644; J1815; J2270; J2405; J2543; J2710; J3010; J3475; J3480; J7030; J7042; J7050; J7120; S0074